=== PATIENT | female | born 1995 | race African-American/Black ===

== ENCOUNTER 2017-12-23 11:42 | Emergency (ER) | payer MEDICAID ==
[~2017-12-23] VITALS: Ht 167.6 cm; Wt 58.0 kg
[2017-12-23 11:48] VITALS: BP 106/64
== END 2017-12-23 13:35 | disposition home or self-care (01) ==
LOC: ER 13:21
DX: L03.011 Cellulitis of right finger (principal)
CPT/HCPCS: 99283

== ENCOUNTER 2017-12-30 11:13 | Emergency (ER) | payer MEDICAID ==
[~2017-12-30] VITALS: Ht 167.6 cm; Wt 59.0 kg
[2017-12-30 11:20] VITALS: BP 112/77
== END 2017-12-30 13:50 | disposition home or self-care (01) ==
LOC: ER 11:41
DX: M54.5 Low back pain (principal); M25.511 Pain in right shoulder; F12.10 Cannabis abuse, uncomplicated; Z88.5 Allergy status to narcotic agent; Z88.6 Allergy status to analgesic agent; Y00.XXXA Assault by blunt object, initial encounter; Y93.89 Activity, other specified; Y92.89 Other specified places as the place of occurrence of the external cause; Y99.8 Other external cause status
CPT/HCPCS: 99281

== ENCOUNTER 2018-01-03 11:08 | Emergency (ER) | payer MEDICAID | END 2018-01-03 12:16 | disposition left against medical advice (07) | LOC: ER 12:12 | DX: Z53.21 Procedure and treatment not carried out due to patient leaving prior to being seen by health care provider (principal) ==

== ENCOUNTER 2018-01-03 14:36 | Emergency (ER) | payer MEDICAID ==
[~2018-01-03] VITALS: Ht 167.6 cm; Wt 59.0 kg
[2018-01-03 14:56] VITALS: BP 122/67
== END 2018-01-03 17:18 | disposition left against medical advice (07) ==
LOC: ER 14:36
DX: Z53.21 Procedure and treatment not carried out due to patient leaving prior to being seen by health care provider (principal)

== ENCOUNTER 2018-03-03 23:14 | Emergency (ER) | payer MEDICAID | END 2018-03-04 02:26 | disposition left against medical advice (07) | LOC: ER 23:14 | DX: Z53.21 Procedure and treatment not carried out due to patient leaving prior to being seen by health care provider (principal); Z88.6 Allergy status to analgesic agent ==

== ENCOUNTER 2018-03-25 10:13 | Emergency (ER) | payer MEDICAID ==
[~2018-03-25] VITALS: Ht 160 cm; Wt 50.0 kg
[2018-03-25] MEDS ORDERED: LIDOCAINE HCL/PF 1% 2ML VIAL INFIL ONE (11:00)
[2018-03-25] MEDS ORDERED: TETANUS, DIPHTHERIA, PERTUSSIS VAC/PF 0.5ML (>7YR OLD) IM ONE (11:00)
[2018-03-25] MEDS ORDERED: BACITRACIN ZINC OINT UDPKT TOP ONE (11:00)
[2018-03-25] MEDS ORDERED: IBUPROFEN 600MG TABLET PO ONE (11:00)
[2018-03-25] MEDS ORDERED: LIDOCAINE HCL/PF 1% 10 MG/ML 5ML VIAL IJ ONE (12:00)
[2018-03-25 13:42] VITALS: BP 112/70
== END 2018-03-25 13:56 | disposition home or self-care (01) ==
LOC: ER 10:13
DX: S51.812A Laceration without foreign body of left forearm, initial encounter (principal); S51.012A Laceration without foreign body of left elbow, initial encounter; S21.219A Laceration without foreign body of unspecified back wall of thorax without penetration into thoracic cavity, initial encounter; S00.81XA Abrasion of other part of head, initial encounter; S11.85XA Open bite of other specified part of neck, initial encounter; S10.81XA Abrasion of other specified part of neck, initial encounter; S80.812A Abrasion, left lower leg, initial encounter; S80.811A Abrasion, right lower leg, initial encounter; F12.10 Cannabis abuse, uncomplicated; Z88.6 Allergy status to analgesic agent; X99.1XXA Assault by knife, initial encounter; Y04.1XXA Assault by human bite, initial encounter; Y93.89 Activity, other specified; Y92.018 Other place in single-family (private) house as the place of occurrence of the external cause
CPT/HCPCS: 12001; 73070; 81025; 90471; 90715; 99284; J3490

== ENCOUNTER 2018-04-06 12:02 | Emergency (ER) | payer MEDICAID ==
[~2018-04-06] VITALS: Ht 167.6 cm; Wt 59.0 kg
[2018-04-06 12:09] VITALS: BP 113/69
== END 2018-04-06 12:30 | disposition home or self-care (01) ==
LOC: ER 12:02
DX: S51.012D Laceration without foreign body of left elbow, subsequent encounter (principal); Z48.02 Encounter for removal of sutures; F12.10 Cannabis abuse, uncomplicated; Z88.6 Allergy status to analgesic agent; Z88.8 Allergy status to other drugs, medicaments and biological substances; X58.XXXD Exposure to other specified factors, subsequent encounter
CPT/HCPCS: 99281; Z7610

== ENCOUNTER 2018-04-18 16:06 | Emergency (ER) | payer MEDICAID ==
[~2018-04-18] VITALS: Ht 167.6 cm; Wt 49.8 kg
[2018-04-18] MEDS ORDERED: TRAMADOL 50MG TABLET PO ONE (17:00)
[2018-04-18] MEDS ORDERED: DOXYCYCLINE HYCLATE 100MG CAPSULE PO ONE (17:15)
[2018-04-18 18:59] VITALS: BP 106/69
== END 2018-04-18 19:32 | disposition short-term general hospital (02) ==
LOC: ER 17:03
DX: S61.511A Laceration without foreign body of right wrist, initial encounter (principal); F12.10 Cannabis abuse, uncomplicated; Z88.6 Allergy status to analgesic agent; Z88.8 Allergy status to other drugs, medicaments and biological substances; W25.XXXA Contact with sharp glass, initial encounter; Y93.89 Activity, other specified; Y92.89 Other specified places as the place of occurrence of the external cause; Y99.8 Other external cause status
CPT/HCPCS: 73110; 99285

== ENCOUNTER 2018-05-10 09:52 | Emergency (ER) | payer MEDICAID ==
[~2018-05-10] VITALS: Ht 167.6 cm; Wt 59.0 kg
[2018-05-10 09:58] VITALS: BP 101/73
== END 2018-05-10 11:21 | disposition left against medical advice (07) ==
LOC: ER 09:52
DX: Z53.21 Procedure and treatment not carried out due to patient leaving prior to being seen by health care provider (principal)

== ENCOUNTER 2018-06-22 08:17 | Emergency (ER) | payer MEDICAID ==
[~2018-06-22] VITALS: Ht 167.6 cm; Wt 59.0 kg
[2018-06-22 08:22] VITALS: BP 119/52
== END 2018-06-22 13:10 | disposition left against medical advice (07) ==
LOC: ER 08:17
DX: M54.9 Dorsalgia, unspecified (principal); Z53.21 Procedure and treatment not carried out due to patient leaving prior to being seen by health care provider
CPT/HCPCS: 81025